=== PATIENT | female | born 1960 | race Caucasian/White ===

== ENCOUNTER 2020-02-10 09:14 | Outpatient (CLI) | payer MEDICARE, MEDICAID, SELFPAY ==
--- NOTE | 2020-02-10 10:00 | NEURO_ITS ---
Patient Number: [id number] Impression: # Complains of numbness of hands. # Bilateral Carpal Tunnel Syndrome, right more than left. # No ulnar neuropathy. # Normal needle/EMG exam. Nerve Conduction Studies Anti Sensory Summary Table Stim Site NR Peak (ms) P-T Amp (?V) Site1 Site2 Delta-P (ms) Dist (cm) Matti (m/s) Left Median Anti Sensory (2-3nd Digit) Wrist 4.0 71.3 Wrist 2-3nd Digit 4.0 14.0 35 Wrist 3.9 75.2 Wrist 2-3nd Digit 4.0 14.0 35 Right Median Anti Sensory (2-3nd Digit) Wrist 4.1 6.9 Wrist 2-3nd Digit 4.1 14.0 34 Wrist 6.7 28.2 Wrist 2-3nd Digit 4.1 14.0 34 Left Radial Anti Sensory (Base 1st Digit) Wrist 2.2 13.8 Wrist Base 1st Digit 2.2 0.0 Right Radial Anti Sensory (Base 1st Digit) Wrist 2.1 20.6 Wrist Base 1st Digit 2.1 0.0 Left Ulnar Anti Sensory (5th Digit) Wrist 2.8 74.2 Wrist 5th Digit 2.8 14.0 50 Right Ulnar Anti Sensory (5th Digit) Wrist 2.6 39.0 Wrist 5th Digit 2.6 14.0 54 Motor Summary Table Stim Site NR Onset (ms) O-P Amp (mV) Site1 Site2 Delta-0 (ms) Dist (cm) Matti (m/s) Left Median Motor (Abd Poll Brev) Wrist 4.8 1.5 Elbow Wrist 4.3 24.0 56 Elbow 9.1 0.8 Right Median Motor (Abd Poll Brev) Wrist 6.8 0.7 Elbow Wrist 5.1 26.0 51 Elbow 11.9 0.6 Left Ulnar Motor (Abd Dig Minimi) Wrist 2.7 6.9 A Elbow Wrist 5.2 29.0 56 A Elbow 7.9 6.0 Right Ulnar Motor (Abd Dig Minimi) Wrist 2.4 6.6 A Elbow Wrist 5.2 28.0 54 A Elbow 7.6 5.8 F Wave Studies NR F-Lat (ms) L-R F-Lat (ms) Left Median (Mrkrs) (Abd Poll Brev) 30.00 0.64 Right Median (Mrkrs) (Abd Poll Brev) 29.36 0.64 Left Ulnar (Mrkrs) (Abd Dig Min) 27.64 0.31 Right Ulnar (Mrkrs) (Abd Dig Min) 27.95 0.31 EMG Side Muscle Nerve Root Ins Act Fibs Amp Dur Recrt Comment Right 1stDorInt Ulnar C8-T1 Nml Nml Nml Nml Nml Right Ext Indicis Radial (Post Int) C7-8 Nml Nml Nml Nml Nml Right Ext Digitorum Radial (Post Int) C7-8 Nml Nml Nml Nml Nml Right BrachioRad Radial C5-6 Nml Nml Nml Nml Nml Right PronatorTeres Median C6-7 Nml Nml Nml Nml Nml Right Abd Poll Brev Median C8-T1 Nml Nml Nml Nml Nml Left 1stDorInt Ulnar C8-T1 Nml Nml Nml Nml Nml Left Ext Indicis Radial (Post Int) C7-8 Nml Nml Nml Nml Nml Left Ext Digitorum Radial (Post Int) C7-8 Nml Nml Nml Nml Nml Left BrachioRad Radial C5-6 Nml Nml Nml Nml Nml Left PronatorTeres Median C6-7 Nml Nml Nml Nml Nml Left Abd Poll Brev Median C8-T1 Nml Nml Nml Nml Nml MTDD
== END 2020-02-10 09:15 | disposition home or self-care (01) ==
PROVIDERS: PCP Family Medicine; Visit Provider Family Medicine
DX: G56.03 Carpal tunnel syndrome, bilateral upper limbs (principal)
CPT/HCPCS: 95886; 95911

== ENCOUNTER 2020-04-14 09:32 | Outpatient (CLI) | payer MEDICARE, MEDICAID, SELFPAY ==
[2020-04-14 10:42] LABS: Cholesterol 148 mg/dL (0-200); HDL Direct 44 mg/dL; Triglycerides 75 mg/dL (<150)
[2020-04-14 10:46] LABS: Alanine Aminotransferase 13 U/L (4-35); Albumin Level 3.8 g/dL (3.5-5.1); Alkaline Phosphatase 85 U/L (38-126); Aspartate Amino Transferase 23 U/L (14-36); Bilirubin,Total 0.2 mg/dL (0.2-1.3); Blood Urea Nitrogen 20 mg/dL (7-17); Calcium 8.8 mg/dL (8.4-10.2); Carbon Dioxide 30 mmol/L (22-30); Chloride 106 mmol/L (98-107); Estimated Glomerular Filt Rate 57; Glucose 99 mg/dL (65-105); Potassium 4.3 mmol/L (3.4-5.0); Sodium 138 mmol/L (137-145)
[2020-04-14 10:53] LABS: LDL Cholesterol Direct 94 mg/dL
== END 2020-04-14 09:33 | disposition home or self-care (01) ==
PROVIDERS: PCP Family Medicine; Visit Provider Internal Medicine Cardiovascular Disease
DX: E66.9 Obesity, unspecified (principal)
CPT/HCPCS: 36415; 80053; 80061

== ENCOUNTER 2020-04-28 15:55 | Outpatient (CLI) | payer MEDICARE, MEDICAID, SELFPAY ==
--- NOTE | ~2020-04-28 | CT_ITS ---
EXAMINATION: CT pelvis wo con EXAM DATE: 04/28/2020 16:13 INDICATION: Left-sided buttock pain. TECHNIQUE: Spiral CT pelvis wo con was performed without contrast. Axial, coronal and sagittal imag es were reviewed. The dose-length product (DLP) for this examination was 979.95 mGy-cm. The exposur e was tailored according to patient size (auto mA exposure control), and iterative reconstruction ( IR) was used as additional dose reduction technique. Correlation is made to right hip CT 2017. FINDINGS: Posttraumatic soft tissue unremarkable. No perirectal abscess. There is been interval tot al right hip arthroplasty. The hardware is in expected position and there is no periprosthetic lucenc y, no evidence of loosening or infection. Normal appendix. Small umbilical fat-containing hernia. The uterus is not identified and has likely been surgically resected. Bladder is unremarkable. No pelvic lymphadenopathy. IMPRESSION: 1. Intact right hip arthroplasty. 2. Small umbilical hernia. Reviewed, dictated and finalized at location B.
== END 2020-04-28 15:56 | disposition home or self-care (01) ==
PROVIDERS: PCP Family Medicine; Visit Provider Family Medicine
DX: M79.18 Myalgia, other site (principal); K42.9 Umbilical hernia without obstruction or gangrene; Z96.641 Presence of right artificial hip joint
CPT/HCPCS: 72192

== ENCOUNTER 2021-04-20 07:23 | Outpatient (CLI) | payer MEDICARE, MEDICAID, SELFPAY ==
[2021-04-20 08:02] LABS: Alanine Aminotransferase 15 U/L (4-35); Albumin Level 3.9 g/dL (3.5-5.1); Alkaline Phosphatase 88 U/L (38-126); Anion Gap 7 mmol/L (8-16); Aspartate Amino Transferase 21 U/L (14-36); Bilirubin,Total 0.2 mg/dL (0.2-1.3); Blood Urea Nitrogen 14 mg/dL (7-17); Calcium 8.9 mg/dL (8.4-10.2); Carbon Dioxide 28 mmol/L (22-30); Chloride 109 mmol/L (98-107); Cholesterol 165 mg/dL (0-200); Estimated Glomerular Filt Rate > 60; Glucose 101 mg/dL (65-105); HDL Direct 49 mg/dL; Potassium 4.5 mmol/L (3.4-5.0); Sodium 144 mmol/L (137-145); Triglycerides 94 mg/dL (<150)
[2021-04-20 08:13] LABS: LDL Cholesterol Direct 83 mg/dL
== END 2021-04-20 07:24 | disposition home or self-care (01) ==
PROVIDERS: PCP Family Medicine; Visit Provider Internal Medicine Cardiovascular Disease
DX: E66.9 Obesity, unspecified (principal); R07.9 Chest pain, unspecified; I10 Essential (primary) hypertension
CPT/HCPCS: 36415; 80053; 80061

== ENCOUNTER 2022-02-21 15:20 | Outpatient (CLI) | payer MEDICARE, MEDICAID, SELFPAY ==
[2022-02-21 16:41] LABS: Hematocrit 43.5 % (37.0-47.0); Hemoglobin 13.7 g/dL (12.0-15.0); Mean Corpuscular HGB Conc 31.5 g/dl (32-36); Mean Corpuscular Hemoglobin 28.5 pg (26-34); Mean Corpuscular Volume 90.6 fl (80-100); Mean Platelet Volume 9.9 fl (7.4-10.4); Platelet Count Result 295 k/mm3 (150-375); Red Cell Distribution Width 14.4 % (11.5-14.5); White Blood Count 7.4 K/mm3 (4.5-10.0)
[2022-02-21 16:49] LABS: Anion Gap 8 mmol/L (8-16); Blood Urea Nitrogen 12 mg/dL (7-17); Calcium 8.9 mg/dL (8.4-10.2); Carbon Dioxide 27 mmol/L (22-30); Chloride 104 mmol/L (98-107); Estimated Glomerular Filt Rate > 60; Glucose 91 mg/dL (65-110); Potassium 3.9 mmol/L (3.4-5.0); Sodium 139 mmol/L (137-145)
[2022-02-21 17:23] LABS: Free T4 Free Thyroxine 0.91 ng/mL (0.78-2.19); Vitamin D 25 Hydroxy 16.1 ng/mL
[2022-02-21 17:46] LABS: Vitamin B12 > 1000.0 pg/mL (239-931)
== END 2022-02-21 15:21 | disposition home or self-care (01) ==
PROVIDERS: PCP Family Medicine; Visit Provider Family Medicine
DX: E03.9 Hypothyroidism, unspecified (principal); E53.8 Deficiency of other specified B group vitamins; E55.9 Vitamin D deficiency, unspecified; I12.9 Hypertensive chronic kidney disease with stage 1 through stage 4 chronic kidney disease, or unspecified chronic kidney disease; N18.31 Chronic kidney disease, stage 3a
CPT/HCPCS: 36415; 80048; 82306; 82607; 84439; 84443; 85027

== ENCOUNTER 2022-05-10 12:35 | Outpatient (CLI) | payer MEDICARE, MEDICAID, SELFPAY ==
[2022-05-10 13:50] LABS: Vitamin D 25 Hydroxy 64.3 ng/mL
== END 2022-05-10 12:36 | disposition home or self-care (01) ==
PROVIDERS: PCP Family Medicine; Visit Provider Nurse Practitioner Family
DX: E55.9 Vitamin D deficiency, unspecified (principal)
CPT/HCPCS: 36415; 82306

== ENCOUNTER 2022-06-27 11:06 | Outpatient (CLI) | payer MEDICARE, MEDICAID, SELFPAY ==
--- NOTE | ~2022-06-27 | XR_ITS ---
XR chest 2V DATE: 06/27/2022 13:12 INDICATION: Chronic cough TECHNIQUE: PA and lateral views COMPARISON: 06/14/2014 PA and lateral chest FINDINGS: Normal heart size. No hilar or mediastinal enlargement. No pulmonary infiltrate or consolid ation, pleural effusion or pulmonary vascular congestion or pneumothorax. Surgical clips, right upper quadrant, consistent with cholecystectomy. Osteoarthritic changes noted at the left glenohumeral joint. Mild dextroscoliosis and degenerative ch perry of the thoracic spine. IMPRESSION: No active cardiopulmonary disease Reviewed, dictated and finalized at location B.
== END 2022-06-27 11:07 | disposition home or self-care (01) ==
PROVIDERS: PCP Family Medicine; Visit Provider Family Medicine
DX: R05.3 Chronic cough (principal)
CPT/HCPCS: 71046

== ENCOUNTER 2022-07-19 14:25 | Outpatient (CLI) | payer MEDICARE, MEDICAID, SELFPAY ==
--- NOTE | 2022-07-19 17:28 | WPDPFTINT ---
PFT Procedure Performed PFT Procedure Performed Spirometry with Pre/Post Bronchodilator Plethysmography (Lung Vol) Diffusing Cap (DLCO) Flow Vol Loop PFT Interpretation This is a pulmonary function test with pre and post-bronchodilator spirometry, plethysmography and diffusing capacity. The test was performed and results interpreted in accordance with the 2019 and 2005 ATS/ERS Task Force guidelines respectively using the Global Lung Function Initiative-2012 reference equations. Patient demonstrated good effort and cooperation. Reproducibility criteria were met. The quality of the pre bronchodilator spirometry maneuver was Grade A and post bronchodilator spirometry maneuver was Grade A. Findings: Spirometry: The contour the inspiratory and expiratory flow tracing are normal. The pre bronchodilator FVC is 2.73 L, 93% predicted. The pre bronchodilator FEV1 is 2.21 L, 95% predicted. The pre bronchodilator FEV1: FVC ratio was 81%. The post bronchodilator FVC is 2.80 L, representing a 3% increase. The post bronchodilator FEV1 is 2.14 L, representing a 3% decrease. The post bronchodilator FEV1: FVC ratio 76%. Plethysmography: The total lung capacity is 3.97 L, 84% predicted. The functional residual capacity is 1.89 L, 71% predicted. The residual volume is 1.24 L, 66% predicted. Diffusion capacity: The diffusing capacity unadjusted for hemoglobin and carboxyhemoglobin is 17.6, 85% predicted. The diffusing capacity adjusted for alveolar volume is 4.57, 101% predicted. Impression: The spirometry is normal without evidence of an obstructive abnormality. There is no significant improvement after inhaling a single dose of albuterol. The lung volumes are normal. The diffusing capacity is normal. There are no prior studies for comparison
== END 2022-07-19 14:26 | disposition home or self-care (01) ==
LOC: ANHPFT 14:26
PROVIDERS: PCP Family Medicine; Visit Provider Family Medicine
DX: R05.3 Chronic cough (principal)
CPT/HCPCS: 94060; 94726; 94729

== ENCOUNTER 2022-11-24 00:11 | Day surgery (SDC) | payer MEDICARE, MEDICAID, SELFPAY ==
[2022-11-10 13:08] VITALS: BMI 44.7
[2022-11-24 09:16] VITALS: BP 163/63; PULSE 52; RESP 20; TEMP 36.3; O2SAT 98; BMI 43.7
[2022-11-24] MEDS: LACTATED RINGERS 1,000 ML 150 ML IV CONT (09:19)
--- NOTE | 2022-11-24 09:24 | WPDANESEPPF ---
Anes - Initial Pre Proc Eval Procedure: Operation Date: 11/24/22 10:00 Proposed Procedures p Esophagogastroduodenoscopy - Margarito Valenzuela MD Date/Time: 11/24/22 09:24 Surgeon: Margarito Valenzuela MD Pre Op Diagnosis: GERD Patient Data Age: 62 Gender: F Height: 1.57 m Weight: 108.6 kg Last Vital Signs Temp 36.3 C L 11/24/22 09:16 Pulse 52 L 11/24/22 09:16 Resp 20 11/24/22 09:16 BP 163/63 H 11/24/22 09:16 Pulse Ox 98 11/24/22 09:16 O2 Del Method Room Air 11/24/22 09:16 Allergies Allergy/AdvReac Type Severity Reaction Status Date / Time LEIGH Inhibitors Allergy Unknown Cough Verified 11/24/22 09:08 oxybutynin Allergy Unknown Rash Verified 11/24/22 09:08 Home Medications Medication Instructions Recorded Confirmed Type bupropion HCl 300 mg 24 hr tablet, 300 mg PO QAM 10/19/19 11/24/22 History extended release escitalopram oxalate 20 mg tablet 20 mg PO DAILY 10/19/19 11/24/22 History (Lexapro) carvedilol 25 mg tablet See Rx Instructions .Route 02/21/22 11/24/22 Rx .COMPLEX #180 tabs omeprazole 40 mg capsule,delayed 40 mg PO DAILY #90 caps 02/21/22 11/24/22 Rx release vitamin B complex (B 1 tablet PO DAILY 03/31/22 11/24/22 History Complex-Vitamin B12 tablet) levothyroxine 50 mcg tablet See Rx Instructions .Route 08/25/22 11/24/22 Rx .COMPLEX #90 tabs diclofenac sodium 75 mg 75 mg PO BID #60 tabs 09/24/22 11/24/22 Rx tablet,delayed release lamotrigine 25 mg tablet 100 mg PO BID 10/12/22 11/24/22 History cholecalciferol (vitamin D3) 125 125 mcg PO DAILY 11/08/22 11/24/22 History mcg (5,000 unit) capsule lorazepam 0.5 mg tablet 0.5 mg PO PRN PRN Anxiety 11/08/22 11/24/22 History furosemide 20 mg tablet See Rx Instructions .Route 11/22/22 11/24/22 Rx .COMPLEX #90 tabs Patient hx anesthesia problems: none Family hx anesthesia problems: none Results Review: All pre-operative results and documents have been reviewed as part of the pre-operative evaluation. 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 Essential (primary) hypertension GERD without esophagitis Hypothyroidism Itch of skin LBBB (left bundle branch block) Left buttock pain Left knee DJD Major depressive disorder, single episode, unspecified Morbid (severe) obesity due to excess calories Obesity DORIAN (obstructive sleep apnea) Traumatic hematoma of buttock Ulnar nerve compression Vitamin B12 deficiency Vitamin D deficiency Surgical History Surgical History History of total right hip replacement Family History Family History Mother Hypertension Family history of coronary artery disease Family history of chronic obstructive pulmonary disease Family history of emphysema Grandparent Family history of malignant neoplasm Diabetes mellitus Father Family history of emphysema Sibling Family history of chronic obstructive pulmonary disease Hypertension Family history of emphysema Other Family history of arthritis Family history of mental disorder Social History Social History Smoking status: Never smoker Alcohol intake: never Substance use: never Substance use type: does not use Lack of Transportation: No Lack of Food: Never True Current Housing: I Have Housing Concerned About Future Housing: No Difficulty Paying Gas/Electric Bills: No Difficulty Paying for Meds: No Currently Unemployed: No Education: High School Diploma/GED Difficulty w/ Childcare or Family Care: No Living arrangements: with family Spiritual
--- NOTE | 2022-11-24 09:24 | WPDHPUPDATE1 ---
History and Physical Update Update Date/Time: 11/24/22 09:24 History and Physical has been reviewed, including an updated exam of the patient. There are NO changes in the patient's condition. Risks, benefits, and alternatives have been discussed and questions answered. Patient agrees to proceed with procedure. Patient does note ongoing heartburn despite taking omeprazole 40mg p.o. daily. This occurs intermittently during the day and does not occur at night. She notices no particular association with coughing without heartburn however.
[2022-11-24 10:06] VITALS: BP 132/54; PULSE 48; RESP 16; O2SAT 95
[2022-11-24 10:16] VITALS: BP 145/75; PULSE 47; RESP 22; O2SAT 96
[2022-11-24 10:26] VITALS: BP 148/75; PULSE 48; RESP 17; O2SAT 97
== END 2022-11-24 10:34 | disposition home or self-care (01) ==
PROVIDERS: PCP Family Medicine; Visit Provider Internal Medicine Gastroenterology
PROC: 0DJ08ZZ Inspection of Upper Intestinal Tract, Via Natural or Artificial Opening Endoscopic (ICD-10-PCS; CPT 43235; principal; 2022-11-24 10:00)
DX: R12 Heartburn (principal); R05.3 Chronic cough; I12.9 Hypertensive chronic kidney disease with stage 1 through stage 4 chronic kidney disease, or unspecified chronic kidney disease; N18.30 Chronic kidney disease, stage 3 unspecified; K21.9 Gastro-esophageal reflux disease without esophagitis; E03.9 Hypothyroidism, unspecified; E66.01 Morbid (severe) obesity due to excess calories; Z68.41 Body mass index [BMI] 40.0-44.9, adult; F32.9 Major depressive disorder, single episode, unspecified; Z79.899 Other long term (current) drug therapy; Z82.49 Family history of ischemic heart disease and other diseases of the circulatory system
CPT/HCPCS: 43235; J2704; J7120

== ENCOUNTER 2023-04-20 09:09 | Outpatient (CLI) | payer MEDICARE, MEDICAID, SELFPAY ==
--- NOTE | 2023-05-14 19:11 | WPDSLEEPSTUD ---
Sleep Study Date of Study: 04/20/23 Ordering Provider: TED Pinedo Interpreting Physician: Raven Carvajal DO Sleep Study Type: Split Polysomnogram Height: 1.57 m Weight: 107.501 kg Body Mass Index: 43.3 Neck Circumference (inches): 17 [place]: 13 Reason for Sleep Study Previous diagnosis of DORIAN in 2017 and was unable to tolerate CPAP due to claustrophobia, seeking treatment with either MAD if she is a candidate or she may be willing to re-attempt CPAP. 12/15/2016 ? Split PSG ? Moderate DORIAN with overall AHI 15.8 and CPAP 8cmH2O was recommended. Sleep History Patient is a 62-year-old female with history of hypertension, CKD, GERD, hypothyroidism depression, and obstructive sleep apnea who presented to the sleep lab for a sleep study for re-evaluation of sleep apnea. She was diagnosed with moderate DORIAN in 2016 and was unable to tolerate CPAP due to claustrophobia. She never awakens from sleep short of breath. She frequently awakens at night with heartburn, belching or cough.? She occasionally snores. She occasionally snores loudly enough that others complain. She rarely has trouble sleeping when she has a cold. She never suddenly wakes up gasping for breath during the night. She never has breathing problems at night. She occasionally sweats excessively at night. She never notices her heart pounding or beating irregularly during the night. She occasionally falls asleep during the day. She never falls asleep involuntarily and never falls asleep while driving. She never experiences loss of muscle tone with strong emotion. She frequently has trouble at work because of sleepiness. She never feels paralyzed on waking or falling asleep. She rarely experiences vivid dreams upon waking or falling asleep. She does not feel afraid of going to sleep. She rarely has nightmares. She occasionally recalls her dreams. She frequently has thoughts racing through her mind. She constantly feels sad or depressed. She constantly feels anxiety or worry about things. She rarely has muscular tension. She rarely notices parts of her body jerk. She occasionally kicks during the night. She rarely feels crawling or aching feelings in her legs. She never feels leg pain at night. She frequently grinds her teeth during sleep and never has morning jaw pain. She constantly feels bothered by pain during the day and is occasionally awakened by pain during the night. She frequently wakes up feeling stiff in the morning. She rarely wakes feeling sore or achy in the morning and occasionally wakes with pain in her neck, spine, or joints. Normal bedtime is before midnight on the weekdays and between 1am to 2am on the weekends, taking anywhere from 30 min to 2 hours to fall asleep. She typically gets about 6 to 8 hours of sleep per night. Her wake up time is 4:30am on the weekdays and same on the weekends. She typically wakes up around once per night, awake briefly and goes right back to sleep. Habits:? Never tobacco smoker. Drinks about 32oz to 64oz of caffeine per day. No alcohol or recreational substances. 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
[2023-05-14 19:18] VITALS: BMI 43.3
== END 2023-04-21 08:22 | disposition home or self-care (01) ==
LOC: ANHCSM 09:10
PROVIDERS: PCP Family Medicine; Visit Provider Physician Assistant
DX: G47.33 Obstructive sleep apnea (adult) (pediatric) (principal)
CPT/HCPCS: 95811

== ENCOUNTER 2023-04-21 07:52 | Outpatient (CLI) | payer MEDICARE, MEDICAID, SELFPAY ==
[2023-04-21 08:45] LABS: Alanine Aminotransferase 24 U/L (6-35); Alkaline Phosphatase 87 U/L (38-126); Anion Gap 6 mmol/L (8-16); Aspartate Amino Transferase 23 U/L (14-36); Bilirubin,Total 0.4 mg/dL (0.2-1.3); Blood Urea Nitrogen 18 mg/dL (7-17); Calcium 8.5 mg/dL (8.4-10.2); Carbon Dioxide 27 mmol/L (22-30); Chloride 108 mmol/L (98-107); Cholesterol 171 mg/dL (0-200); Estimated Glomerular Filt Rate 56; Glucose 95 mg/dL (65-110); HDL Direct 46 mg/dL; Sodium 141 mmol/L (137-145); Triglycerides 113 mg/dL (<150)
[2023-04-21 08:48] LABS: LDL Cholesterol Direct 96 mg/dL
[2023-04-21 09:25] LABS: Basophils Percent Auto 0.8 % (0.2-1.2); Eosinophils Absolute Auto 0.2 K/mm3 (0-0.3); Eosinophils Percent Auto 3.3 % (0-4.4); Hematocrit 41.8 % (37.0-47.0); Hemoglobin 13.2 g/dL (12.0-15.0); Immature Granulocyte Absolute 0.01 K/mm3 (0.00-0.031); Immature Granulocyte Percent A 0.2 % (0-0.5); Lymphocytes Absolute Auto 1.51 K/mm3 (0.9-3.2); Lymphocytes Percent Auto 30.9 % (18.3-44.2); Mean Corpuscular HGB Conc 31.6 g/dl (32-36); Mean Corpuscular Hemoglobin 29.1 pg (26-34); Mean Corpuscular Volume 92.3 fl (80-100); Monocytes Absolute Auto 0.4 K/mm3 (0.1-0.6); Monocytes Percent Auto 7.6 % (2.6-8.5); Neutrophils Absolute Auto 2.8 K/mm3 (1.3-6.7); Neutrophils Percent Auto 57.2 % (45.5-73.1); Platelet Count Result 234 k/mm3 (150-375); Red Blood Count 4.53 M/mm3 (4.2-5.4); Red Cell Distribution Width 13.4 % (11.5-14.5); White Blood Count 4.9 K/mm3 (4.5-10.0)
[2023-04-21 09:41] LABS: Vitamin B12 > 1000.0 pg/mL (239-931)
[2023-04-21 09:43] LABS: Free T4 Free Thyroxine 1.25 ng/mL (0.78-2.19); Vitamin D 25 Hydroxy 54.1 ng/mL
== END 2023-04-21 07:53 | disposition home or self-care (01) ==
LOC: ANHLAB 07:53
PROVIDERS: PCP Family Medicine; Visit Provider Family Medicine
DX: K21.9 Gastro-esophageal reflux disease without esophagitis (principal); E55.9 Vitamin D deficiency, unspecified; E53.8 Deficiency of other specified B group vitamins; E03.9 Hypothyroidism, unspecified; I10 Essential (primary) hypertension; Z13.220 Encounter for screening for lipoid disorders
CPT/HCPCS: 36415; 80053; 80061; 82306; 82607; 84439; 84443; 85025

== ENCOUNTER 2023-05-08 08:15 | Outpatient (CLI) | payer MEDICARE, MEDICAID, SELFPAY ==
--- NOTE | ~2023-05-08 | NM_ITS ---
EXAMINATION: NM griffin stress w perfusion DATE: 05/08/2023 11:32 INDICATION: Chest pain TECHNIQUE: Rest images were obtained following intravenous administration of 10.1 mCi Tc99m tetrofosm in (Myoview). The patient was infused intravenously with Lexiscan (Regadenoson). Then, 32.7 mCi Tc99m tetrofosmin (Myoview) was administered intravenously, and stress images were obtained in supine posi tion. Repeat post stress imaging was obtained in the prone position. Data was reconstructed into shor t axis and horizontal and vertical long axis SPECT images. Gated SPECT images were also obtained. COMPARISON: None. FINDINGS: There is decreased perfusion involving the mid anteroseptal, anterior, anterolateral and in ferolateral segments on the rest images which extends into some of the adjacent basilar and apical se gments in the same regions on the post stress images, all obtained in the supine position. On repeat post stress images obtained in the prone position the majority of the decreased activity normalizes s uggesting this represents breast attenuation artifact with a breast shadow clearly visible extending over significant portion of the heart on the rotating source images. There is a persistent small mild perfusion defect at the mid anteroseptal segment with nonetheless demonstrates greater activity than on the rest images and well small infarct cannot be absolutely excluded most likely represents a min imal amount of residual attenuation artifact. There is a persistent mild perfusion defect at the apic al segment which remains decreased relative to the rest images at which is more suspicious for ischem ia. There is normal left ventricular chamber size, wall motion and ejection fraction. Left ventricul ar ejection fraction measures 52%. IMPRESSION: 1. Small region of potential mild ischemia at the apical segment. 2. Large region of likely breast attenuation artifact involving the anteroseptal, anterior, anterolat eral and inferolateral pan on supine imaging, greater on the stress and the rest images but which n early completely normalizes on the repeat post stress imaging in the prone position. A small residual mild apparent defect at the mid anteroseptal segment nonetheless demonstrate some higher activity th an on the rest images and favor minimal residual attenuation artifact over infarct. 3. Left ventricular ejection fraction measuring 52%. Reviewed, dictated and finalized at location A. IMPRESSION: 1. Small region of potential mild ischemia at the apical segment. 2. Large region of likely breast attenuation artifact involving the anterosepta l, anterior, anterolateral and inferolateral pan on supine imaging, greater o n the stress and the rest images but which nearly completely normalizes on the repeat post stress imaging in the prone position. A small residual mild apparen t defect at the mid anteroseptal segment nonetheless demonstrate some higher ac tivity than on the rest images and favor minimal residual attenuation artifact over infarct. 3. Left ventricular ejection fraction measuring 52%.
--- NOTE | 2023-05-08 08:44 | EST_ITS ---
Patient Info Name: Helga Fitzgerald Age: 62 years : 1960 Gender: Female Ht: 62 in Wt: 237 lbs BSA: 2.23 m2 HR: 59 bpm BP: 142 / 97 mmHg Heart Rhythm: Sinus Rhythm Exam Date: 05/08/2023 10:26 AM Exam Location: [facility] Stress Patient Status: Outpatient Admit Date: 05/08/2023 Staff Ordering Physician: Carlos Cornejo DO Attending Provider: Carlos Cornejo DO Exercise Technologist: Cecilia Meredith CT Exercise Physician: Carlos Cornejo DO Exam Type: CA stress griffin w NM Study Info Indications R06.00 - Dyspnea, unspecified A regadenoson stress test was performed. Summary 1. 1. Inconclusive lexiscan stress test for ischemic ST changes by ECG criteria due to baseline LBBB. 2. 2. Baseline hypertension. 3. 3. Nuclear scan to follow and will be reported separately. Please correlate with it. 4. 4. Patient informed of the above results. Protocol: Lexiscan Stress ECG Details Stage: REST Duration (min): 1 min : 4 sec HR (bpm): 58 SBP (mmHg): 142 DBP (mmHg): 97 Stage: REST Duration (min): 6 min : 33 sec HR (bpm): 61 SBP (mmHg): 142 DBP (mmHg): 97 Stage: STAGE 1 Duration (min): 1 min : 0 sec HR (bpm): 70 SBP (mmHg): 159 DBP (mmHg): 64 Stage: RECOVERY Duration (min): 1 min : 0 sec HR (bpm): 78 SBP (mmHg): 159 DBP (mmHg): 64 Stage: RECOVERY Duration (min): 2 min : 0 sec HR (bpm): 75 SBP (mmHg): 159 DBP (mmHg): 64 Stage: RECOVERY Duration (min): 3 min : 0 sec HR (bpm): 73 SBP (mmHg): 159 DBP (mmHg): 64 Stage: RECOVERY Duration (min): 3 min : 37 sec HR (bpm): 73 SBP (mmHg): 142 DBP (mmHg): 68 Rest HR: 61 bpm Peak HR: 78 bpm Rest Sys BP: 142 mmHg Peak Sys BP: 159 mmHg Max Pred HR: 159 bpm % Max Pred HR: 49 % Target HR: 135 bpm Max RPP: 12,402 bpm*mmHg Termination Reason: Completed protocol Cardiac Symptoms: Shortness of breath Total Time: 1 min : 0 sec Rest Almanza BP: 97 mmHg Peak Almanza BP: 64 mmHg Total Dose: 0.4 mg Resting ECG Sinus rhythm, LBBB. Stress ECG No ST changes. Arrhythmias None. Report Signatures
--- NOTE | 2023-05-08 08:44 | ECHO_ITS ---
Patient Info Name: Helga Fitzgerald Age: 62 years : 1960 Gender: Female Ht: 62 in Wt: 237 lbs BSA: 2.23 m2 HR: 57 bpm BP: 155 / 84 mmHg Technical Quality: Fair Exam Date: 05/08/2023 8:57 AM Exam Location: [facility] Pulmonary Patient Status: Outpatient Admit Date: 05/08/2023 Staff Ordering Physician: Carlos Cornejo DO Rental Salesperson: Nayla Cruz RDCS Attending Provider: Carlos Cornejo DO Referring Physician: Clemente FELIPE; Exam Type: CA echo doppler color flow Study Info Indications R06.09 - Other forms of dyspnea Complete two-dimensional, color flow and Doppler transthoracic echocardiogram is performed. Summary 1. Complete two-dimensional, color flow and Doppler transthoracic echocardiogram is performed. 2. Left ventricular chamber dimension is moderately enlarged. 3. Left ventricular systolic function is normal, estimated at 55-60%. 4. There is mild concentric increased left ventricular wall thickness. 5. Left ventricular septal wall motion is abnormal with septal motion related to bundle branch block. 6. The left ventricular diastolic function is grade II diastolic dysfunction. 7. E/e' 13 is mildly elevated. 8. Left atrial chamber dimension is moderately enlarged. 9. There is mild aortic valve sclerosis. 10. No pulmonary hypertension, estimated pulmonary arterial systolic pressure is 29 mmHg. 11. There is trivial pericardial effusion. Left Ventricle E/e' 13 is mildly elevated. Left ventricular chamber dimension is moderately enlarged. Left ventricular systolic function is normal, estimated at 55-60%. There is mild concentric increased left ventricular wall thickness. Left ventricular septal wall motion is abnormal with septal motion related to bundle branch block. The left ventricular diastolic function is grade II diastolic dysfunction. Right Ventricle Right ventricular chamber dimension is normal. Right ventricular systolic function is normal. Left Atria Left atrial chamber dimension is moderately enlarged. Right Atria Right atrial chamber dimension is normal. Aortic Valve The aortic valve is trileaflet. There is mild aortic valve sclerosis. There is no aortic valve stenosis. There is no aortic valve regurgitation. Pulmonic Valve There is no pulmonic regurgitation. Mitral Valve There is no mitral valve stenosis. There is no mitral valve regurgitation. Tricuspid Valve There is no tricuspid valve regurgitation. No pulmonary hypertension, estimated pulmonary arterial systolic pressure is 29 mmHg. Pericardium/Pleural There is trivial pericardial effusion. Inferior Vena Cava Normal inferior vena cava with >50% collapse upon inspiration consistent with normal right atrial pressure, 5 mmHg. Aorta The aortic root size at the sinus of Valsalva is normal. Left Ventricular Outflow Tract Name Value Normal LVOT 2D LVOT Diameter 2.0 cm LVOT Doppler LVOT Peak Gradient 5 mmHg LVOT Mean Gradient 3 mmHg LVOT VTI 31 cm LVOT VTI/AV VTI Ratio 0.9 LVOT Stroke Volume 95 ml LVOT CO 5.0 l/min L
== END 2023-05-08 08:16 | disposition home or self-care (01) ==
LOC: ANHCARD 08:16
PROVIDERS: PCP Family Medicine; Visit Provider Internal Medicine Cardiovascular Disease
DX: R07.9 Chest pain, unspecified (principal); R06.09 Other forms of dyspnea; R93.1 Abnormal findings on diagnostic imaging of heart and coronary circulation; I35.8 Other nonrheumatic aortic valve disorders
CPT/HCPCS: 78452; 93017; 93306; A9502; J2785

== ENCOUNTER 2023-05-24 09:15 | Outpatient (CLI) | payer MEDICARE, MEDICAID, SELFPAY | END 2023-05-24 09:16 | disposition home or self-care (01) | LOC: ANHLAB 09:17 | PROVIDERS: PCP Family Medicine; Visit Provider Physician Assistant | DX: D64.9 Anemia, unspecified (principal) | CPT/HCPCS: 36415; 82728 ==

== ENCOUNTER 2023-08-02 11:16 | Outpatient (CLI) | payer MEDICARE, MEDICAID, SELFPAY | END 2023-08-02 11:17 | disposition home or self-care (01) | PROVIDERS: PCP Family Medicine; Visit Provider Nurse Practitioner Family | DX: G47.61 Periodic limb movement disorder (principal); L29.9 Pruritus, unspecified | CPT/HCPCS: 36415; 82728 ==

== ENCOUNTER 2023-08-23 07:55 | Outpatient (CLI) | payer MEDICARE, MEDICAID, SELFPAY ==
--- NOTE | 2023-08-23 14:10 | WPDMETH ---
Methacholine Procedure Perform Procedure Performed Methacholine Challenge Methacholine Challenge Methacholine Challenge: Methacholine challenge was performed with quadrupling increases of nebulized methacholine according to the 5-step dosimeter protocol by the ATS /ERS 2017 guidelines. Following administration of 464.4 mcg of methacholine at step 5,? the measured FEV1 decreased by approximately 3% from the baseline measurement.? Impression:? Negative methacholine challenge testing.? Normal airway hyperresponsiveness.??
== END 2023-08-23 07:56 | disposition home or self-care (01) ==
PROVIDERS: PCP Family Medicine; Visit Provider Physician Assistant
DX: R05.3 Chronic cough (principal)
CPT/HCPCS: 94070; J7674

== ENCOUNTER 2023-10-02 12:44 | Outpatient (CLI) | payer MEDICARE, MEDICAID, SELFPAY | END 2023-10-02 12:45 | disposition home or self-care (01) | LOC: ANHLAB 12:47 | PROVIDERS: PCP Family Medicine; Visit Provider Physician Assistant | DX: D64.9 Anemia, unspecified (principal) | CPT/HCPCS: 36415; 82728 ==

== ENCOUNTER 2023-12-25 10:39 | Outpatient (CLI) | payer MEDICARE, MEDICAID, SELFPAY | END 2023-12-25 10:40 | disposition home or self-care (01) | LOC: ANHLAB 10:45 | PROVIDERS: PCP Family Medicine; Visit Provider Physician Assistant | DX: D64.9 Anemia, unspecified (principal) | CPT/HCPCS: 36415; 82728 ==

== ENCOUNTER 2024-04-02 07:22 | Outpatient (CLI) | payer MEDICARE, MEDICAID, SELFPAY | END 2024-04-02 07:23 | disposition home or self-care (01) | LOC: ANHLAB 07:24 | PROVIDERS: PCP Family Medicine; Visit Provider Physician Assistant | DX: D64.9 Anemia, unspecified (principal) | CPT/HCPCS: 36415; 82728 ==

== ENCOUNTER 2024-04-15 08:48 | Outpatient (CLI) | payer MEDICARE, MEDICAID, SELFPAY ==
[2024-04-15 09:31] LABS: Alanine Aminotransferase 24 U/L (6-35); Alkaline Phosphatase 96 U/L (38-126); Anion Gap 6 mmol/L (4-12); Aspartate Amino Transferase 22 U/L (14-36); Bilirubin,Total 0.5 mg/dL (0.2-1.3); Blood Urea Nitrogen 18 mg/dL (7-17); Calcium 9.2 mg/dL (8.4-10.2); Carbon Dioxide 28 mmol/L (22-30); Chloride 107 mmol/L (98-107); Cholesterol 178 mg/dL (0-200); Estimated Glomerular Filt Rate 50; Glucose 96 mg/dL (65-110); HDL Direct 49 mg/dL; Potassium 4.1 mmol/L (3.4-5.0); Sodium 141 mmol/L (137-145); Triglycerides 140 mg/dL (<150)
[2024-04-15 09:42] LABS: LDL Cholesterol Direct 108 mg/dL
== END 2024-04-15 08:49 | disposition home or self-care (01) ==
LOC: ANHLAB 08:52
PROVIDERS: PCP Family Medicine; Visit Provider Internal Medicine Cardiovascular Disease
DX: I10 Essential (primary) hypertension (principal)
CPT/HCPCS: 36415; 80053; 80061

== ENCOUNTER 2024-12-09 09:14 | Outpatient (CLI) | payer MEDICARE, MEDICAID, SELFPAY ==
--- OUTSIDE RECORDS SUMMARY | 2024-12-09 09:55 | XMS_ITS | Clinical Summary ---
Author Organization [facility] Address [facility] [address] Care Team Providers Care Cardboard Inserter Name Role Phone Guy Khanna MD Primary Care Provider [phone] Allergies Active Allergy Reactions Criticality Noted Date Comments Edgar Inhibitors Cough 07/21/2019 Oxybutynin Rash Low 07/21/2019 Medications traMADol (ULTRAM) 50 MG tablet Take 1 tablet (50 mg total) by mouth every 6 (six) hours as needed (moderate to severe pain). 12 tablet 07/21/2019 Active Social History Tobacco Use Types Packs/Day Years Used Date Smoking Tobacco: Never Smokeless Tobacco: Never Alcohol Use Standard Drinks/Week Comments No 0 (1 standard drink = 0.6 oz pur e alcohol) AUDIT-C Answer Date Recorded Frequency of Alcohol Consumption Never 07/21/2019 Average Number of Drinks Not on file 019 Frequency of Binge Drinking Not on file 06/30 Comments No Sex and Gender Information Value Date Recorded Sex Assigned at Not on file Legal Sex Female 4:58 PM CDT Gender Identity Not on file Sexual Orientation Not on file Last Filed Vital Signs Vital Sign Reading Time Taken Comments Blood Pressure 140/70 10/18/2019 7:24 PM BID WRITER Pulse 69 10/18/2019 7:24 PM BID WRITER Temperature 37.2 C (99 F) 07/21/2019 9:28 PM CDT Respiratory Rate 18 10/18/2019 7:24 PM BID WRITER Oxygen Saturation 99% 10/18/2019 7:24 PM BID WRITER Inhaled Oxygen Concentration - - Weight 106.1 kg (234 lb) 10/18/2019 5:36 PM BID WRITER Height 157.5 cm (5' 2 ) 10/18/2019 5:36 PM BID WRITER Body Mass Index 42.8 10/18/2019 5:36 PM BID WRITER Plan of Treatment Health Maintenance Due Date Last Done Comments Colorectal Cancer Screening Colonoscopy (10 Years) 1961 Annual Physical 1964 Hepatitis C 1979 DTaP, Tdap and Td Vaccines ( 1 - Tdap) 1980 Mammogram Screening 2001 Zoster Vaccines (1 of 2) 2011 COVID-19 Vaccine ( - 2023-2 5 season) 2024 Influenza Adult (#1) 2024 RSV Immunization or 60+ Years (1 - 1-dose 75+ series) 2036 Meningococcal B Vaccine Aged Out No l onger eligible based on patient's age to complete this topic Meningococcal Vaccine Aged Out No shabbir jennifer eligible based on patient's age to complete this topic Pneumococcal Vaccine: Pediat rics (0 to 5 Years) and At-Risk Patients (6 to 64 Years) Aged Out No longer eligible b ased on patient's age to complete this topic RSV Immunizations Under 20 Months Aged Out No longer eligible based on patient's age to complete this topic Insurance MEDICARE MEDICAID Care Teams Cardboard Inserter Relationship Specialty Start Date End Date Guy Khanna MD [address] [place], [place] [id number] PCP - General FAMILY PRACTICE 07/21/19
--- NOTE | 2024-12-09 10:45 | NEURO_ITS ---
Impression: # Complains of numbness in hands. Non-diabetic. ? # Severe right Carpal Tunnel Syndrome. # Mild left Carpal Tunnel Syndrome. # No ulnar neuropathy. ? # Normal needle/EMG exam. Nerve Conduction Studies Anti Sensory Summary Table ?Stim Site NR Peak (ms) P-T Amp (?V) Site1 Site2 Delta-P (ms) Dist (cm) Matti (m/s) Left Median Anti Sensory (2-3nd Digit) Wrist ? 3.7 44.5 Wrist 2-3nd Digit 3.7 14.0 38 Wrist ? 3.8 38.2 Wrist 2-3nd Digit 3.7 14.0 38 Right Median Anti Sensory (2-3nd Digit) Wrist ? 7.5 13.6 Wrist 2-3nd Digit 7.5 14.0 19 Wrist ? 7.3 14.0 Wrist 2-3nd Digit 7.5 14.0 19 Left Radial Anti Sensory (Base 1st Digit) Wrist ? 2.2 13.2 Wrist Base 1st Digit 2.2 0.0 Right Radial Anti Sensory (Base 1st Digit) Wrist ? 2.3 10.8 Wrist Base 1st Digit 2.3 0.0 Left Ulnar Anti Sensory (5th Digit) Wrist ? 2.5 40.9 Wrist 5th Digit 2.5 14.0 56 Right Ulnar Anti Sensory (5th Digit) Wrist ? 2.5 40.1 Wrist 5th Digit 2.5 14.0 56 Motor Summary Table ?Stim Site NR Onset (ms) O-P Amp (mV) Site1 Site2 Delta-0 (ms) Dist (cm) Matti (m/s) Left Median Motor (Abd Poll Brev) Wrist ? 4.2 2.1 Elbow Wrist 5.1 27.0 53 Elbow ? 9.3 1.0 Right Median Motor (Abd Poll Brev) Wrist ? 7.2 1.4 Elbow Wrist 5.1 26.0 51 Elbow ? 12.3 1.2 Left Ulnar Motor (Abd Dig Minimi) Wrist ? 2.3 6.8 A Elbow Wrist 5.1 29.0 57 A Elbow ? 7.4 5.4 Right Ulnar Motor (Abd Dig Minimi) Wrist ? 2.8 5.9 A Elbow Wrist 4.9 28.0 57 A Elbow ? 7.7 4.9 F Wave Studies ?NR F-Lat (ms) L-R F-Lat (ms) Left Median (Mrkrs) (Abd Poll Brev) ? 28.64 3.11 Right Median (Mrkrs) (Abd Poll Brev) ? 31.75 3.11 Left Ulnar (Mrkrs) (Abd Dig Min) ? 28.44 0.16 Right Ulnar (Mrkrs) (Abd Dig Min) ? 28.59 0.16 EMG ?Side Muscle Nerve Root Ins Act Fibs Amp Dur Recrt Comment Right 1stDorInt Ulnar C8-T1 Nml Nml Nml Nml Nml Right Ext Indicis Radial (Post Int) C7-8 Nml Nml Nml Nml Nml Right Ext Digitorum Radial (Post Int) C7-8 Nml Nml Nml Nml Nml Right BrachioRad Radial C5-6 Nml Nml Nml Nml Nml Right PronatorTeres Median C6-7 Nml Nml Nml Nml Nml Right Abd Poll Brev Median C8-T1 Nml Nml Nml Nml Nml Right ABD Dig Min Ulnar C8-T1 Nml Nml Nml Nml Nml Left 1stDorInt Ulnar C8-T1 Nml Nml Nml Nml Nml Left Ext Indicis Radial (Post Int) C7-8 Nml Nml Nml Nml Nml Left Ext Digitorum Radial (Post Int) C7-8 Nml Nml Nml Nml Nml Left BrachioRad Radial C5-6 Nml Nml Nml Nml Nml Left PronatorTeres Median C6-7 Nml Nml Nml Nml Nml Left Abd Poll Brev Median C8-T1 Nml Nml Nml Nml Nml Left ABD Dig Min Ulnar C8-T1 Nml Nml Nml Nml Nml ? MTDD
== END 2024-12-09 09:15 | disposition home or self-care (01) ==
LOC: ANHNEURO 09:15
PROVIDERS: PCP Family Medicine; Visit Provider Family Medicine
DX: G56.03 Carpal tunnel syndrome, bilateral upper limbs (principal); G56.21 Lesion of ulnar nerve, right upper limb
CPT/HCPCS: 95886; 95911

== ENCOUNTER 2025-02-09 08:55 | Outpatient (CLI) | payer MEDICARE, MEDICAID, SELFPAY ==
--- OUTSIDE RECORDS SUMMARY | 2025-02-09 09:39 | XMS_ITS | Clinical Summary ---
Author Organization [facility] Address [facility] [place] [address] Care Team Providers Care Molecular Modeler Name Role Phone Guy Khanna MD Primary Care Provider [phone] Allergies Active Allergy Reactions Criticality Noted Date [...] Comments Blood Pressure 140/70 10/18/2019 7:24 PM EQUITY RESEARCH ANALYST Pulse 69 10/18/2019 7:24 PM EQUITY RESEARCH ANALYST Temperature 37.2 C (99 F) 07/21/2019 9:28 PM CDT Respiratory Rate 18 10/18/2019 7:24 PM EQUITY RESEARCH ANALYST Oxygen Saturation 99% 10/18/2019 7:24 PM EQUITY RESEARCH ANALYST Inhaled Oxygen Concentration - - Weight 106.1 kg (234 lb) 10/18/2019 5:36 PM EQUITY RESEARCH ANALYST Height 157.5 cm (5' 2 ) 10/18/2019 5:36 PM EQUITY RESEARCH ANALYST Body Mass Index 42.8 10/18/2019 5:36 PM EQUITY RESEARCH ANALYST Plan of Treatment Health Maintenance Due Date Last Done Comments Colorectal Cancer Screening Colonoscopy (10 Years) 1961 Annual Physical 1964 Hepatitis C 1979 DTaP, Tdap and Td Vaccines ( 1 - Tdap) 1980 Mammogram Screening 2001 Zoster Vaccines (1 of 2) 2011 COVID-19 Vaccine ( - 2023-2 5 season) 2024 RSV Immunization or 60+ Years (1 - 1-dose 75+ series) 2036 Meningococcal B Vaccine Aged Out No l onger eligible based on patient's age to complete this topic Meningococcal Vaccine Aged Out No shabbir jennifer eligible based on patient's age to complete this topic Pneumococcal Vaccine: Pediat rics (0 to 5 Years) and At-Risk Patients (6 to 49 Years) Aged Out No longer eligible b ased on patient's age to complete this topic RSV Immunizations Under 20 Months Aged Out No longer eligible based on patient's age to complete this topic Insurance MEDICARE MEDICAID Care Teams Molecular Modeler Relationship Specialty Start Date End Date Guy Khanna MD [address] [place] [address] PCP - General FAMILY PRACTICE 07/21/19
[2025-02-09 11:28] LABS: Basophils Absolute Auto 0.1 K/mm3 (0.0-0.1); Basophils Percent Auto 0.7 % (0.2-1.2); Eosinophils Absolute Auto 0.3 K/mm3 (0-0.3); Hematocrit 41.3 % (37.0-47.0); Hemoglobin 13.5 g/dL (12.0-15.0); Immature Granulocyte Absolute 0.02 K/mm3 (0.00-0.031); Immature Granulocyte Percent A 0.3 % (0-0.5); Lymphocytes Absolute Auto 1.78 K/mm3 (0.9-3.2); Lymphocytes Percent Auto 23.6 % (18.3-44.2); Mean Corpuscular HGB Conc 32.7 g/dl (32-36); Mean Corpuscular Hemoglobin 29.2 pg (26-34); Mean Corpuscular Volume 89.4 fl (80-100); Mean Platelet Volume 9.2 fl (7.4-10.4); Monocytes Absolute Auto 0.6 K/mm3 (0.1-0.6); Monocytes Percent Auto 7.3 % (2.6-8.5); Neutrophils Absolute Auto 4.8 K/mm3 (1.3-6.7); Neutrophils Percent Auto 64.1 % (45.5-73.1); Platelet Count Result 269 k/mm3 (150-375); Red Blood Count 4.62 M/mm3 (4.2-5.4); Red Cell Distribution Width 12.6 % (11.5-14.5); White Blood Count 7.5 K/mm3 (4.5-10.0)
[2025-02-09 11:38] LABS: Hemoglobin A1C 5.4 % (<5.7)
[2025-02-09 11:40] LABS: Alanine Aminotransferase 20 U/L (6-35); Albumin Level 4.3 g/dL (3.5-5.1); Alkaline Phosphatase 92 U/L (38-126); Anion Gap 8 mmol/L (4-12); Aspartate Amino Transferase 21 U/L (14-36); Bilirubin,Total 0.5 mg/dL (0.2-1.3); Blood Urea Nitrogen 18 mg/dL (7-17); Calcium 9.2 mg/dL (8.4-10.2); Carbon Dioxide 27 mmol/L (22-30); Chloride 105 mmol/L (98-107); Cholesterol 176 mg/dL (0-200); Estimated Glomerular Filt Rate 52; Glucose 98 mg/dL (65-110); HDL Direct 48 mg/dL; Potassium 4.1 mmol/L (3.4-5.0); Sodium 140 mmol/L (137-145); Triglycerides 145 mg/dL (<150)
[2025-02-09 11:51] LABS: LDL Cholesterol Direct 93 mg/dL
== END 2025-02-09 08:56 | disposition home or self-care (01) ==
PROVIDERS: PCP Family Medicine
DX: F39 Unspecified mood [affective] disorder (principal); Z79.899 Other long term (current) drug therapy
CPT/HCPCS: 36415; 80053; 82306; 82465; 83036; 83718; 83721; 84443; 84478; 85025

== ENCOUNTER 2025-02-10 13:49 | Outpatient (CLI) | payer MEDICARE, MEDICAID, SELFPAY ==
[2025-02-10 14:06] LABS: Basophils Percent Auto 0.6 % (0.2-1.2); Eosinophils Absolute Auto 0.2 K/mm3 (0-0.3); Hematocrit 42.5 % (37.0-47.0); Hemoglobin 13.7 g/dL (12.0-15.0); Immature Granulocyte Absolute 0.03 K/mm3 (0.00-0.031); Immature Granulocyte Percent A 0.4 % (0-0.5); Lymphocytes Absolute Auto 1.29 K/mm3 (0.9-3.2); Lymphocytes Percent Auto 18.4 % (18.3-44.2); Mean Corpuscular HGB Conc 32.2 g/dl (32-36); Mean Corpuscular Hemoglobin 29.5 pg (26-34); Mean Corpuscular Volume 91.4 fl (80-100); Mean Platelet Volume 9.3 fl (7.4-10.4); Monocytes Absolute Auto 0.5 K/mm3 (0.1-0.6); Monocytes Percent Auto 6.7 % (2.6-8.5); Neutrophils Percent Auto 70.9 % (45.5-73.1); Platelet Count Result 253 k/mm3 (150-375); Red Blood Count 4.65 M/mm3 (4.2-5.4); Red Cell Distribution Width 12.5 % (11.5-14.5)
[2025-02-10 14:19] LABS: Anion Gap 9 mmol/L (4-12); Blood Urea Nitrogen 16 mg/dL (7-17); Calcium 9.3 mg/dL (8.4-10.2); Carbon Dioxide 27 mmol/L (22-30); Chloride 105 mmol/L (98-107); Estimated Glomerular Filt Rate 52; Glucose 99 mg/dL (65-110); Potassium 4.7 mmol/L (3.4-5.0); Sodium 141 mmol/L (137-145)
[2025-02-10 14:24] LABS: Iron 93 ug/dL (37-170)
[2025-02-10 14:34] LABS: Percent Iron Saturation 28 % (20-50)
[2025-02-10 14:39] LABS: Vitamin D 25 Hydroxy 67.9 ng/mL
[2025-02-10 14:43] LABS: Free T4 Free Thyroxine 1.15 ng/dL (0.78-2.19)
--- OUTSIDE RECORDS SUMMARY | 2025-02-10 14:54 | XMS_ITS | Clinical Summary ---
Author Organization [facility] Address [facility] [place] [address] Care Team Providers Care Grain Inspector Name Role Phone Guy Khanna MD Primary Care Provider [phone] Allergies Active Allergy Reactions Criticality Noted Date [...] Comments Blood Pressure 140/70 10/18/2019 7:24 PM SALES PROFESSIONAL BILINGUAL Pulse 69 10/18/2019 7:24 PM SALES PROFESSIONAL BILINGUAL Temperature 37.2 C (99 F) 07/21/2019 9:28 PM CDT Respiratory Rate 18 10/18/2019 7:24 PM SALES PROFESSIONAL BILINGUAL Oxygen Saturation 99% 10/18/2019 7:24 PM SALES PROFESSIONAL BILINGUAL Inhaled Oxygen Concentration - - Weight 106.1 kg (234 lb) 10/18/2019 5:36 PM SALES PROFESSIONAL BILINGUAL Height 157.5 cm (5' 2 ) 10/18/2019 5:36 PM SALES PROFESSIONAL BILINGUAL Body Mass Index 42.8 10/18/2019 5:36 PM SALES PROFESSIONAL BILINGUAL Plan of Treatment Health Maintenance Due Date [...] this topic Insurance MEDICARE MEDICAID Care Teams Grain Inspector Relationship Specialty Start Date End Date Guy Khanna MD [address] [address] PCP - General FAMILY PRACTICE 07/21/19
[2025-02-10 15:09] LABS: Vitamin B12 > 1000.0 pg/mL (239-931)
== END 2025-02-10 13:50 | disposition home or self-care (01) ==
LOC: ANHLAB 13:51
PROVIDERS: PCP Family Medicine; Visit Provider Family Medicine
DX: N18.31 Chronic kidney disease, stage 3a (principal); E55.9 Vitamin D deficiency, unspecified; R79.0 Abnormal level of blood mineral; E53.8 Deficiency of other specified B group vitamins; E03.9 Hypothyroidism, unspecified
CPT/HCPCS: 36415; 80048; 82306; 82607; 82728; 83540; 83550; 84439; 84443; 85025

== ENCOUNTER 2025-02-11 08:48 | Outpatient (CLI) | payer MEDICARE, MEDICAID, SELFPAY ==
--- NOTE | ~2025-02-11 | XR_ITS ---
Right Hand Technique: PA, oblique, and lateral views were obtained. Clinical History: Carpal tunnel syndrome Findings: No acute fracture or dislocation is seen. Osseous alignment is anatomic. Joint spaces are p reserved. Soft tissues are unremarkable. Impression: Unremarkable right hand. Reviewed, dictated and finalized at location . Impression: Unremarkable right hand.
--- OUTSIDE RECORDS SUMMARY | 2025-02-11 09:21 | XMS_ITS | Clinical Summary ---
Author Organization [facility] Address [facility] [place] [address] Care Team Providers Care Truck Guard Name Role Phone Guy Khanna MD Primary Care Provider [phone] Allergies Active Allergy Reactions Criticality Noted Date [...] Comments Blood Pressure 140/70 10/18/2019 7:24 PM PERSONAL ATTENDANT Pulse 69 10/18/2019 7:24 PM PERSONAL ATTENDANT Temperature 37.2 C (99 F) 07/21/2019 9:28 PM CDT Respiratory Rate 18 10/18/2019 7:24 PM PERSONAL ATTENDANT Oxygen Saturation 99% 10/18/2019 7:24 PM PERSONAL ATTENDANT Inhaled Oxygen Concentration - - Weight 106.1 kg (234 lb) 10/18/2019 5:36 PM PERSONAL ATTENDANT Height 157.5 cm (5' 2 ) 10/18/2019 5:36 PM PERSONAL ATTENDANT Body Mass Index 42.8 10/18/2019 5:36 PM PERSONAL ATTENDANT Plan of Treatment Health Maintenance Due Date [...] this topic Insurance MEDICARE MEDICAID Care Teams Truck Guard Relationship Specialty Start Date End Date Guy Khanna [place] [address] [address] PCP - General FAMILY PRACTICE 07/21/19
== END 2025-02-11 08:49 | disposition home or self-care (01) ==
PROVIDERS: PCP Family Medicine; Visit Provider Plastic Surgery
DX: G56.01 Carpal tunnel syndrome, right upper limb (principal)
CPT/HCPCS: 73130

== ENCOUNTER 2025-02-27 09:12 | Outpatient (CLI) | payer MEDICARE, MEDICAID, SELFPAY ==
--- NOTE | 2025-02-27 14:55 | WPDPFTINT ---
PFT Procedure Performed PFT Procedure Performed Spirometry with Pre/Post Bronchodilator Plethysmography (Lung Vol) Diffusing Cap (DLCO) Flow Vol Loop PFT Interpretation This is a pulmonary function test with pre and post-bronchodilator spirometry, plethysmography and diffusing capacity. The test was performed and results interpreted in accordance with the 2019 and 2005 ATS/ERS Task Force guidelines respectively using the Global Lung Function Initiative-2012 reference equations. Patient demonstrated good effort and cooperation. Reproducibility criteria were met. The quality of the pre bronchodilator spirometry maneuver was Grade A and post bronchodilator spirometry maneuver was Grade A. Findings: Spirometry: The contour the inspiratory and expiratory flow tracing are normal. The pre bronchodilator FVC is 2.69 L, 95% predicted. The pre bronchodilator FEV1 is 2.17 L, 97% predicted. The pre bronchodilator FEV1: FVC ratio is 80%. The post bronchodilator FVC is 2.69 L, representing no change. The post bronchodilator FEV1 is 2.16 L, representing no change. The post bronchodilator FEV1: FVC ratio is 80%. Plethysmography: The total lung capacity is 4.13 L, 87% predicted. The functional residual capacity is 1.91 L, 72% predicted. The residual volume is 1.44 L, 74% predicted. Diffusing capacity: The diffusing capacity unadjusted for hemoglobin and carboxyhemoglobin is 17.1, 83% predicted. The diffusing capacity adjusted for alveolar volume is 4.22, 94% predicted. In comparison to previous pulmonary function testing on 08/23/2023 in which only spirometry was performed the post bronchodilator FVC is unchanged from 2.65 L to 2.69 L. The post bronchodilator FEV1 is unchanged from 2.19 L to 2.16 L. Impression: The spirometry is normal without evidence of an obstructive abnormality. There is no significant improvement after inhaling a single dose of albuterol. The lung volumes are normal. The diffusing capacity is normal. In comparison to previous pulmonary function testing on 08/23/2023 in which only spirometry was performed the FVC and FEV1 are unchanged. Clinical correlation is recommended.
--- OUTSIDE RECORDS SUMMARY | 2025-02-28 11:27 | XMS_ITS | Clinical Summary ---
Author Organization [facility] Address [facility] [place] [address] Care Team Providers Care End Maker Name Role Phone Guy Khanna MD Primary Care Provider [phone] Allergies Active Allergy Reactions Criticality Noted Date [...] Comments Blood Pressure 140/70 10/18/2019 7:24 PM ASSEMBLER CORNCOB PIPES Pulse 69 10/18/2019 7:24 PM ASSEMBLER CORNCOB PIPES Temperature 37.2 C (99 F) 07/21/2019 9:28 PM CDT Respiratory Rate 18 10/18/2019 7:24 PM ASSEMBLER CORNCOB PIPES Oxygen Saturation 99% 10/18/2019 7:24 PM ASSEMBLER CORNCOB PIPES Inhaled Oxygen Concentration - - Weight 106.1 kg (234 lb) 10/18/2019 5:36 PM ASSEMBLER CORNCOB PIPES Height 157.5 cm (5' 2 ) 10/18/2019 5:36 PM ASSEMBLER CORNCOB PIPES Body Mass Index 42.8 10/18/2019 5:36 PM ASSEMBLER CORNCOB PIPES Plan of Treatment Health Maintenance Due Date Last Done Comments Colorectal Cancer Screening Colonoscopy (10 Years) 1961 Annual Physical 1964 Hepatitis C 1979 DTaP, Tdap and Td Vaccines ( 1 - Tdap) 1980 Mammogram Screening 2001 Pneumococcal Vaccine: 50+ Ye ars (1 of 1 - PCV) 2011 Zoster Vaccines (1 of 2) 2011 COVID-19 Vaccine (1 - 2023-2 5 season) 2024 RSV Immunization [...] this topic Insurance MEDICARE MEDICAID Care Teams End Maker Relationship Specialty Start Date End Date Guy Khanna MD [address] [place] [address] PCP - General FAMILY PRACTICE 07/21/19
== END 2025-02-27 09:13 | disposition home or self-care (01) ==
LOC: ANHPFT 09:14
PROVIDERS: PCP Family Medicine; Visit Provider Family Medicine
DX: R05.3 Chronic cough (principal)
CPT/HCPCS: 94060; 94726; 94729

== ENCOUNTER 2025-04-27 12:04 | Outpatient (CLI) | payer MEDICARE, MEDICAID, SELFPAY ==
--- OUTSIDE RECORDS SUMMARY | 2025-04-27 12:07 | XMS_ITS | Clinical Summary ---
Author Organization [facility] Address [facility] [place] [address] Care Team Providers Care Environmental Systems Coordinator Name Role Phone Guy Khanna MD Primary Care Provider [phone] Allergies Active Allergy Reactions Criticality Noted Date [...] Comments Blood Pressure 140/70 10/18/2019 7:24 PM VINEYARD TENDER Pulse 69 10/18/2019 7:24 PM VINEYARD TENDER Temperature 37.2 C (99 F) 07/21/2019 9:28 PM CDT Respiratory Rate 18 10/18/2019 7:24 PM VINEYARD TENDER Oxygen Saturation 99% 10/18/2019 7:24 PM VINEYARD TENDER Inhaled Oxygen Concentration - - Weight 106.1 kg (234 lb) 10/18/2019 5:36 PM VINEYARD TENDER Height 157.5 cm (5' 2) 10/18/2019 5:36 PM VINEYARD TENDER Body Mass Index 42.8 10/18/2019 5:36 PM VINEYARD TENDER Plan of Treatment Health Maintenance Due Date [...] this topic Insurance MEDICARE MEDICAID Care Teams Environmental Systems Coordinator Relationship Specialty Start Date End Date Guy Khanna MD [address] [place] [address] PCP - General FAMILY PRACTICE 07/21/19
[2025-04-27 12:50] LABS: Anion Gap 9 mmol/L (4-12); Blood Urea Nitrogen 19 mg/dL (7-17); Calcium 9.4 mg/dL (8.4-10.2); Carbon Dioxide 27 mmol/L (22-30); Chloride 104 mmol/L (98-107); Estimated Glomerular Filt Rate 47; Glucose 95 mg/dL (65-110); Sodium 140 mmol/L (137-145)
== END 2025-04-27 12:05 | disposition home or self-care (01) ==
PROVIDERS: PCP Family Medicine; Visit Provider Anesthesiology
DX: Z79.899 Other long term (current) drug therapy (principal)
CPT/HCPCS: 36415; 80048

== ENCOUNTER 2025-04-29 00:09 | Day surgery (SDC) | payer MEDICARE, MEDICAID, SELFPAY ==
[2025-04-27 10:23] VITALS: BMI 41.0
--- NOTE | 2025-04-27 10:30 | PC.NURSE ---
Report to the Outpatient Waiting Room, entrance under the green pavilion located off [facility], at time _0615_ on date _[id number]_. Planned Procedure Time: _0815_.? Time changes happen often and if your time is changed the preop area will call you the afternoon before. - You and your visitor will be asked to self-screen and do not enter if you have any COVID symptoms. Please call surgeon if you need to reschedule. - A mask is optional within the hospital at this time. - No food or drink from midnight until time of surgery and no smoking, or chewing tobacco (or any form of nicotine). No chewing gum, candy or mints. Take only the following medications with a SIP of water on the morning of surgery: ___Bupropion, Venlafaxine, Carvidilol, Levothyroxine and Hydroxyzine.____ DO NOT STOP ANY OF YOUR OTHER PRESCRIPTION MEDICATIONS PRIOR TO SURGERY EXCEPT THE FOLLOWING Hold all vitamins and supplements for 3 days per anesthesiologist. Stop now. Medications to discontinue per physician Date to take last dose Please no make-up, nail ivorian, hairspray, perfume, deodorant, or body powder the day of surgery.? No jewelry (including any body piercings) or valuables the day of surgery, leave them at home.? Please take a shower or bath the night before, or the morning of, surgery with an antibacterial soap.? Wear comfortable, loose fitting clothing.? - Jewelry must be removed prior to entering the operating room.? Rings and piercings that are not removed may be cut off. - The hospital will not accept responsibility for valuables.? - Please leave all valuables, including medications, at home the day of surgery. If you are going home after surgery, a licensed locomotive driver must drive you home.? - NO public transportation without another adult if you receive anesthesia. - We recommend that an adult stay with you for 24 hours following discharge. - We also recommend that you do not drive, make important decision, drink alcoholic beverages, or take any drugs that were not prescribed by your health care provider for at least 24 hours after your discharge time. Follow any additional instructions given to you from your surgeon. Telephone instructions given to ___Tammy__and asked if any additional questions and then verbalized understanding. Patient advised to call surgeon office or pre surgery nurse liaison [phone] if any additional questions.
--- OUTSIDE RECORDS SUMMARY | 2025-04-29 00:11 | XMS_ITS | Clinical Summary ---
Author Organization [facility] Address [facility] [place] [address] Care Team Providers Care Waterside Worker Name Role Phone Guy Khanna MD Primary Care Provider [phone] Allergies Active Allergy Reactions Criticality Noted Date [...] Comments Blood Pressure 140/70 10/18/2019 7:24 PM WELDING SETTER Pulse 69 10/18/2019 7:24 PM WELDING SETTER Temperature 37.2 C (99 F) 07/21/2019 9:28 PM CDT Respiratory Rate 18 10/18/2019 7:24 PM WELDING SETTER Oxygen Saturation 99% 10/18/2019 7:24 PM WELDING SETTER Inhaled Oxygen Concentration - - Weight 106.1 kg (234 lb) 10/18/2019 5:36 PM WELDING SETTER Height 157.5 cm (5' 2) 10/18/2019 5:36 PM WELDING SETTER Body Mass Index 42.8 10/18/2019 5:36 PM WELDING SETTER Plan of Treatment Health Maintenance Due Date [...] this topic Insurance MEDICARE MEDICAID Care Teams Waterside Worker Relationship Specialty Start Date End Date Guy Khanna MD [address] [place] [address] PCP - General FAMILY PRACTICE 07/21/19
--- NOTE | 2025-04-29 06:51 | P.OP_ITS ---
Procedure Note - Detailed Date of Procedure 04/29/25 Pre-op Diagnosis rt carpal & cubital pola syndrome and right basal joint arthritis Post-op Diagnosis Same Procedure Performed right ectr and CutR and right first cmc steroid injecion Surgeon Jhony Vela MD Launching Pad Mechanic satish gomes pa-c Anesthesia MAC Description of Procedure INFORMED CONSENT: The patient was seen and examined and marked in the pre-op area.? The patient signed the consent form. PROCEDURE IN DETAIL:The patient taken back to OR on the stretcher in supine position. Time out performed with anesthesia, surgeon and staff agreeing on patient's name site and surgery to be performed SCDs were placed on the lower extremities and inflated. A tourniquet was placed on {right} upper extremity and antibiotics given IV After anesthesia administered sedation I injected {10}cc 1%lido with epi and 0.5% marcaine plain at the operative sites The?{right upper extremity}?was prepped and draped in sterile fashion the??{right upper extremity was? exsanguinated with Esmarch bandage and tourniquet inflated to 250mmHg I injected 0.3cc 1%lidocaine plain and 0.7cc Betamethasone 6mg/ml injected into right first cmc joint under sterile conditions I made a transverse incision in the {right} volar distal wrist crease through skin and dermis with 15 blade scalpel.? Littler scissors spread down to antebrachial fascia. A small incision was made in antebrachial fascia allowing access to Carpal tunnel. I proceeded with sequential dilation staying in line with the ring finger and hugging the hook of the hamate.? I then used the synovial elevator to free any adhesions from the underside of the transverse carpal ligament. Next I was able to insert the Microaire endoscopic carpal tunnel device with direct visualization of the transverse fibers on the monitor and proceeded with complete segmental retrograde release of the ligament in its entirety.? I irrigated with normal saline and closed with 4-0 monocryl for dermis and subcuticular closure. I next proceeded with making a longitudinal incision between two heads for flexor carpi ulnaris at end of {right} cubital tunnel with 15 blade scalpel.? Littler scissors were used to spread down to FCU fascia.? An incision was made in FCU fascia and ulnar nerve identified exiting cubital tunnel.? I proceeded with complete retrograde release of the cubital tunnel including 7cm proximal for the intermuscular septum.? The nerve appeared healthy with visible vaso nervorum.? There was no subluxation on full elbow range of motion. ? I irrigated with normal saline and closure with 4-0 monocryl for dermis and subcuticular. The incisions were covered with Dermabond then 4x4s, darrius, and a posterior elbow and volar wrist splint for patient safety, security and comfort and secured with maco bandages after the tourniquet was let down noting the hand was warm and well perfused.? Patient awaken from anesthesia and transferred to recovery in stable condition Complications - none EBL- 1cc Disposition - home in stable conditions satish gomes pa-c was essential for positioning, retraction, closure and dressing placement [facility] Billing Surgery - Charge Forward: Surgery Billing ([id number] same for satish mata )
--- NOTE | 2025-04-29 06:51 | PM.HPGS ---
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 No interval change in medical history or symptoms. Patient recalls previous discussion of benefits and alternatives to procedure. Continues to desire to proceed with right endoscopic possible open carpal tunnel release and right cubital tunnel release and right first cmc joint steroid injection. Reviewed procedure, post-op expectations and risks including but not limited to bleeding, infection, injury to tendon/nerve/vessel, decreased hand function, stiffness, RSD, no change or worsening of symptoms. I discussed the possible use of assistants and their participation in the case. Patient stated understanding and signed the consent form wishing to proceed. Review of Systems Review of Systems: All systems reviewed & are unremarkable except as noted in HPI and below PMFSH Past Medical History Medical History Cholecystectomy planned GERD without esophagitis Cataract Chronic cough Left knee DJD BMI 40.0-44.9, adult Morbid (severe) obesity due to excess calories DJD of shoulder Obesity Chest pain Left buttock pain DJD (degenerative joint disease) of knee Ulnar nerve compression Carpal tunnel syndrome, right Itch of skin Traumatic hematoma of buttock CKD (chronic kidney disease), stage III Essential (primary) hypertension Hypothyroidism LBBB (left bundle branch block) Major depressive disorder, single episode, unspecified DORIAN (obstructive sleep apnea) Vitamin B12 deficiency Vitamin D deficiency Surgical History Surgical History H/O: hysterectomy History of total right hip replacement Family History Family History Mother Hypertension Family history of coronary artery disease Family history of chronic obstructive pulmonary disease Family history of emphysema Grandparent Family history of malignant neoplasm Diabetes mellitus Father Family history of emphysema Sibling Family history of chronic obstructive pulmonary disease Hypertension Family history of emphysema CHF (congestive heart failure) Depression Other Family history of arthritis Family history of mental disorder Social History Social History Social History: Never smoker. Denies alcohol use or illicit substance use. Smoking status: Never smoker Second hand tobacco smoke exposure: Yes Alcohol intake: never Substance use: never Substance use type: does not use Do You Feel Safe in your Home?: Yes Lack of Transportation: No Lack of Food: Never True Current Housing: I Have Housing Concerned About Future Housing: No Difficulty Paying Gas/Electric Bills: No Difficulty Paying for Meds: No Currently Unemployed: No Education: High School Diploma/GED Difficulty w/ Childcare or Family Care: No Living arrangements: with family Occupation/Education: other Gender identity (if verbalized by the patient): Female Spiritual care concerns: No Meds Home Medications and Allergies Home Medications ?Medication ?Instructions ?Recorded ?Confirmed ?Type bupropion HCl 300 mg 24 hr tablet, 300 mg PO QAM 10/19/19 04/29/25 History extended release vitamin B complex (B 1 tablet PO DAILY 03/31/22 04/29/25 History Complex-Vitamin B12 tablet) cholecalciferol (vitamin D3) 125 125 mcg PO DAILY 11/08/22 04/29/25 History mcg (5,000 unit) capsule cetirizine 10 mg tablet See Rx Instructions .Route 09/15/24 04/29/25 Rx .COMPLEX #30 tabs omeprazole 40 mg capsule,delayed 40 mg PO ONCE #30 caps 10/12/24 04/29/25 Rx release furosemide 20 mg tablet See Rx Instructions .Route 01/02/25 04/29/25 Rx .COMPLEX #90 tabs venlafaxine 37.5 mg 75 mg PO DAILY 02/09/25 04/29/25 History capsule,extended release 24 hr carvedilol 6.25 mg tablet See Rx Instructions .Route 04/01/25 04/29/25 Rx .COMPLEX #60 tabs losartan 50 mg tablet See Rx Instructions .Route 04/01/25 04/29/25 Rx .COMPLEX #30 tabs naproxen 500 mg tablet 500 mg PO BID #60 tabs 04/01/25 04/29/25 Rx tizanidine 4 mg tablet 4 mg PO QHS #30 tabs 04/01/25 04/29/25 Rx levothyroxine 50 mcg tablet See Rx Instructions .Route 04/11/25 04/29/25 Rx .COMPLEX #90 tabs albuterol 90 mcg-budesonide 80 2 inh inhalation ONCE #10.7 grams 04/22/25 04/29/25 Rx mcg/actuation HFA aerosol inhaler (Airsupra) hydroxyzine pamoate 25 mg capsule 25 mg PO DAILY 04/24/25 04/29/25 History lamotrigine 25 mg tablet 200 mg PO BID 04/24/25 04/29/25 History Allergies Allergy/AdvReac Type Severity Reaction Status Date / Time LEIGH Inhibitors Allergy Unknown Cough Verified 04/29/25 07:15 oxybutynin Allergy Unknown Rash Verified 04/29/25 07:15 Exam Narrative: unchanged Assessment and Plan Assessment and plan (1) Ulnar nerve compression: Qualifiers: Laterality: right Qualified Code(s): G56.21 - Lesion of ulnar nerve, right upper limb Code(s): G56.20 - Lesion of ulnar nerve, unspecified upper limb Status: Acute Assessment and Plan: cont as above (2) Severe carpal tunnel syndrome: Qualifiers: Laterality: unspecified laterality Qualified Code(s): G56.00 - Carpal tunnel syndrome, unspecified upper limb Code(s): G56.00 - Carpal tunnel syndrome, unspecified upper limb Status: Acute
--- NOTE | 2025-04-29 07:41 | P.PNAN_ITS ---
Anes - Initial Pre Proc Eval Procedure: Operation Date: 04/29/25 08:15 Proposed Procedures p Right Endoscopic Carpal Tunnel Release, Possible Open, Right Cubital Tunnel Release, Right First Carpometacarpal Steroid Injection - Jhony Vela MD Date/Time: 04/29/25 07:41 Surgeon: Jhony Vela MD Pre Op Diagnosis: rt carpal & cubital pola syndrome Patient Data Age: 64 Gender: F Height: 1.57 m Weight: 101 kg Allergies Allergy/AdvReac Type Severity Reaction Status Date / Time LEIGH Inhibitors Allergy Unknown Cough Verified 04/29/25 07:15 oxybutynin Allergy Unknown Rash Verified 04/29/25 07:15 Home Medications ?Medication ?Instructions ?Recorded ?Confirmed ?Type bupropion HCl 300 mg 24 hr tablet, 300 mg PO QAM 10/19/19 04/29/25 History extended release vitamin B complex (B 1 tablet PO DAILY 03/31/22 04/29/25 History Complex-Vitamin B12 tablet) cholecalciferol (vitamin D3) 125 125 mcg PO DAILY 11/08/22 04/29/25 History mcg (5,000 unit) capsule cetirizine 10 mg tablet See Rx Instructions .Route 09/15/24 04/29/25 Rx .COMPLEX #30 tabs omeprazole 40 mg capsule,delayed 40 mg PO ONCE #30 caps 10/12/24 04/29/25 Rx release furosemide 20 mg tablet See Rx Instructions .Route 01/02/25 04/29/25 Rx .COMPLEX #90 tabs venlafaxine 37.5 mg 75 mg PO DAILY 02/09/25 04/29/25 History capsule,extended release 24 hr carvedilol 6.25 mg tablet See Rx Instructions .Route 04/01/25 04/29/25 Rx .COMPLEX #60 tabs losartan 50 mg tablet See Rx Instructions .Route 04/01/25 04/29/25 Rx .COMPLEX #30 tabs naproxen 500 mg tablet 500 mg PO BID #60 tabs 04/01/25 04/29/25 Rx tizanidine 4 mg tablet 4 mg PO QHS #30 tabs 04/01/25 04/29/25 Rx levothyroxine 50 mcg tablet See Rx Instructions .Route 04/11/25 04/29/25 Rx .COMPLEX #90 tabs albuterol 90 mcg-budesonide 80 2 inh inhalation ONCE #10.7 grams 04/22/25 04/29/25 Rx mcg/actuation HFA aerosol inhaler (Airsupra) hydroxyzine pamoate 25 mg capsule 25 mg PO DAILY 04/24/25 04/29/25 History lamotrigine 25 mg tablet 200 mg PO BID 04/24/25 04/29/25 History Patient hx anesthesia problems: none Family hx anesthesia problems: none Results Review: All pre-operative results and documents have been reviewed as part of the pre- operative evaluation. FORMERLY [facility], [facility] Past Medical History Medical History Cholecystectomy planned GERD without esophagitis Cataract Chronic cough Left knee DJD BMI 40.0-44.9, adult Morbid (severe) obesity due to excess calories DJD of shoulder Obesity Chest pain Left buttock pain DJD (degenerative joint disease) of knee Ulnar nerve compression Carpal tunnel syndrome, right Itch of skin Traumatic hematoma of buttock CKD (chronic kidney disease), stage III Essential (primary) hypertension Hypothyroidism LBBB (left bundle branch block) Major depressive disorder, single episode, unspecified DORIAN (obstructive sleep apnea) Vitamin B12 deficiency Vitamin D deficiency Surgical History Surgical History H/O: hysterectomy History of total right hip replacement Family History Family History Mother Hypertension Family history of coronary artery disease Family history of chronic obstructive pulmonary disease Family history of emphysema Grandparent Family history of malignant neoplasm Diabetes mellitus Father Family history of emphysema Sibling Family history of chronic obstructive pulmonary disease Hypertension Family history of emphysema CHF (congestive heart failure) Depression Other Family history of arthritis Family history of mental disorder Social History Social History Social History: Never smoker. Denies alcohol use or illicit substance use. Smoking status: Never smoker Second hand tobacco smoke exposure: Yes Alcohol intake: never Substance use: never Substance use type: does not use Do You Feel Safe in your Home?: Yes Lack of Transportation: No Lack of Food: Never True Current Housing: I Have Housing Concerned About Future Housing: No Difficulty Paying Gas/Electric Bills: No Difficulty Paying for Meds: No Currently Unemployed: No Education: High School Diploma/GED Difficulty w/ Childcare or Family Care: No Living arrangements: with family Occupation/Education: other Gender identity (if verbalized by the patient): Female Spiritual care concerns: No Anes - Eval Final PreProcedure Day of Procedure 04/29/25 07:41 Patient weight: morbidly obese Heart: regular rate and rhythm Lungs: clear to auscultation Airway: Mallampati scale class II Neurological: alert and oriented Last oral intake: >/= 8 hours ASA classification: III Emergent: no Anesthetic plan: proceed Anesthesia type and monitoring: general GIVS and standard monitoring Results Review: All pre-operative results and documents have been reviewed as part of the pre- operative evaluation. Informed Consent: The patient's anesthetic plan and its attendant risks and benefits were d iscussed with the patient/family/POA. Questions were solicited and answers provided to the satisfaction of the patient/family/POA.
[2025-04-29] MEDS: BETAMETHASONE SOD PHOS/ACETATE 30 MG/5 ML VIAL 4.2 MG IM (08:18)
[2025-04-29] MEDS: ceFAZolin 2 GM/D5W 50 ML 2 GM/50 ML BAG IVPB (08:18)
[2025-04-29] MEDS: BUPivacaine HCL 0.5% 10 ML AMP INFILTRATE (08:18)
[2025-04-29] MEDS: LIDO 1%/EPINEPHRINE 1:100,000 50 ML VIAL 10 ML INFILTRATE (08:31)
[2025-04-29] MEDS: LIDOCAINE 1% LOCAL INJ 10 ML VIAL INFILTRATE (08:34)
[2025-04-29 08:52] VITALS: BP 150/75; PULSE 59; RESP 14; O2SAT 97
[2025-04-29] MEDS: LACTATED RINGERS 1,000 ML 30 ML IV CONT (08:52)
[2025-04-29] MEDS: ACETAMINOPHEN 500 MG TABLET 1000 MG PO (09:19)
[2025-04-29 09:20] VITALS: BP 138/59; PULSE 55; RESP 20
[2025-04-29 09:50] VITALS: BP 140/60; PULSE 58; RESP 20
== END 2025-04-29 09:55 | disposition home or self-care (01) ==
PROVIDERS: PCP Family Medicine; Visit Provider Plastic Surgery
PROC: 01N54ZZ Release Median Nerve, Percutaneous Endoscopic Approach (ICD-10-PCS; CPT 29848; principal; 2025-04-29 08:15)
DX: G56.01 Carpal tunnel syndrome, right upper limb (principal); G56.21 Lesion of ulnar nerve, right upper limb; M18.11 Unilateral primary osteoarthritis of first carpometacarpal joint, right hand
CPT/HCPCS: 29848; 20600; 64718; A9270; J0690; J0702; J1100; J2003; J2004; J2250; J2704; J7120

== ENCOUNTER 2025-07-14 10:30 | Outpatient (CLI) | payer MEDICARE, MEDICAID, SELFPAY ==
[2025-07-14 11:39] LABS: Anion Gap 7 mmol/L (4-12); Blood Urea Nitrogen 18 mg/dL (7-17); Calcium 9.2 mg/dL (8.4-10.2); Carbon Dioxide 29 mmol/L (22-30); Chloride 102 mmol/L (98-107); Estimated Glomerular Filt Rate 50; Glucose 96 mg/dL (65-110); Potassium 4.8 mmol/L (3.4-5.0); Sodium 138 mmol/L (137-145)
== END 2025-07-14 10:31 | disposition home or self-care (01) ==
LOC: ANHLAB 10:31
PROVIDERS: PCP Family Medicine; Visit Provider Family Medicine
DX: N18.31 Chronic kidney disease, stage 3a (principal)
CPT/HCPCS: 36415; 80048

== ENCOUNTER 2025-09-15 09:52 | Outpatient (CLI) | payer MEDICARE, MEDICAID, SELFPAY ==
--- NOTE | ~2025-09-15 | XR_ITS ---
EXAMINATION: XR knee LT min 4V, 09/15/2025 10:20 GUARD SUPERVISOR HISTORY: S89.92XA - Unspecified injury of left lower leg, initial ... COMPARISON: No comparisons available. Findings: No acute fracture or malalignment. Severe tricompartmental degenerative changes with small effusion Soft tissues unremarkable. Impression: No acute fracture or malalignment. Reviewed, dictated and finalized at location P. D SUPERVISOR Impression: No acute fracture or malalignment.
--- NOTE | ~2025-09-15 | XR_ITS ---
EXAMINATION: XR hand LT min 3V, 09/15/2025 10:20 PANTOGRAPH SETTER HISTORY: G56.00 - Carpal tunnel syndrome, unspecified upper limb COMPARISON: No comparisons available. Findings: No acute fracture or malalignment. Moderate degenerative changes of the distal interphalangeal joints of the first metacarpal carpal joint, no erosions identified Soft tissues unremarkable. Impression: No acute fracture or malalignment. Reviewed, dictated and finalized at location P. OGRAPH SETTER Impression: No acute fracture or malalignment.
== END 2025-09-15 09:53 | disposition home or self-care (01) ==
PROVIDERS: PCP Family Medicine; Visit Provider Plastic Surgery
DX: S89.92XA Unspecified injury of left lower leg, initial encounter (principal); G56.02 Carpal tunnel syndrome, left upper limb; X58.XXXA Exposure to other specified factors, initial encounter
CPT/HCPCS: 73130; 73564